=== PATIENT | male | born 1935 | race Caucasian/White ===

== ENCOUNTER 2017-06-22 20:01 | Inpatient (IN) | payer OTHER ==
[~2017-06-22] VITALS: Ht 167.6 cm; Wt 97.4 kg
[~2017-06-22 20:01] MED LIST: ALLO100T30 PO; ALPR0.25 PO; ASPI-496 PO; CARV3.1212 PO; CHOL10003 PO; CITA20TA5 PO; CLOP75TA PO; CYAN1TAB29 PO; FENO145T13 PO; FENO145T32 PO; FENO160T PO; FERR325T18 PO; FURO-93 PO; FURO20TA3 PO; GEMF600T3 PO; HYDR-3245 PO; HYDR-3307 PO; IPRA3AMP INH; LEVO500T47 PO; LOSA100T6 PO; LOSA25TA2 PO; LOSA50TA6 PO; METF850T2 PO; METO-93 PO; METO25TA35 PO/NG; OXYC-302 PO; POTA10TA11 PO; POTA10TA5 PO; SIMV20TA PO; SIMV20TA3 PO; TAMS0.4C2 PO; TICA90TA PO; TRIA15CR2 TP
[2017-06-22] MEDS ORDERED: SODIUM CHLORIDE FLUSH 10ML SYR IVF ONE (20:30)
[2017-06-22 20:37] LABS: HEMATOCRIT 38.3 % (39.2-51.8); WHITE BLOOD COUNT 5.2 x10^3/uL (3.4-10)
[2017-06-22 20:38] LABS: DIFF TOTAL CELLS COUNTED 100 CELL DIFF
[2017-06-22 20:43] LABS: BLOOD UREA NITROGEN 12 mg/dL (7-18)
[2017-06-22 20:48] LABS: ASPARTATE AMINO TRANSFERASE 26 U/L (15-37); IS PT STATUS REG ER OR PRE ER? YES
[2017-06-22 20:57] LABS: VERIFY COUNTS? YES
[2017-06-22] MEDS ORDERED: FUROSEMIDE 20 MG/2 ML IV ONE (21:00)
[2017-06-22] MEDS ORDERED: FUROSEMIDE 20 MG/2 ML ONE (21:37)
[2017-06-22] MEDS ORDERED: morphine SULFATE 10 MG/ML, 1ML IVPush PRN (22:00)
[2017-06-22] MEDS ORDERED: ONDANSETRON 2MG/ML, 2ML IVPush PRN (22:00)
[2017-06-22] MEDS ORDERED: POLYETHYLENE GLYCOL 17 GM PACKET PO PRN (22:00)
[2017-06-22] MEDS ORDERED: BISACODYL 10 MG SUPP PR PRN (22:00)
[2017-06-22] MEDS: SODIUM CHLORIDE FLUSH 10ML SYR IVF SCH (22:00)
[2017-06-22] MEDS ORDERED: ACETAMINOPHEN 325 MG TABLET PO PRN (22:00)
[2017-06-22] MEDS ORDERED: HYDROcodone/APAP 10/325 MG TABLET PO PRN (22:00)
[2017-06-22] MEDS ORDERED: NITROGLYCERIN 0.4 MG BOTTLE (25 TABS) SL PRN (22:00)
[2017-06-22] MEDS ORDERED: HEPARIN 5,000 UNITS/ML, 1ML ONE (22:49)
[2017-06-22] MEDS ORDERED: TAMSULOSIN 0.4 MG CAP.ER.24H ONE (22:49)
[2017-06-22] MEDS: TAMSULOSIN 0.4 MG CAP.ER.24H PO SCH (22:55)
[2017-06-22] MEDS: HEPARIN 5,000 UNITS/ML, 1ML SQ SCH (22:56)
[2017-06-23] VITALS: BP 136/88
[2017-06-23] MEDS: metFORMIN 850 MG TABLET PO SCH ×2 (01:50→09:29)
[2017-06-23] MEDS: SIMVASTATIN 20 MG TABLET PO SCH ×2 (01:50→22:51)
[2017-06-23] MEDS: ALLOPURINOL 100 MG TABLET PO SCH ×3 (01:51→22:51)
[2017-06-23] MEDS: FERROUS SULFATE 325 MG TABLET PO SCH ×3 (01:51→18:18)
[2017-06-23 02:32] LABS: BLOOD UREA NITROGEN 11 mg/dL (7-18)
[2017-06-23 02:35] LABS: ASPARTATE AMINO TRANSFERASE 15 U/L (15-37)
[2017-06-23 02:37] LABS: HEMATOCRIT 37.8 % (39.2-51.8); HEMOGLOBIN 12.8 g/dL (13.7-18.0); WHITE BLOOD COUNT 5.2 x10^3/uL (3.4-10)
[2017-06-23 02:45] LABS: IS PT STATUS REG ER OR PRE ER? NO
[2017-06-23 03:26] LABS: DIFF TOTAL CELLS COUNTED 100 CELL DIFF
[2017-06-23 03:27] LABS: VERIFY COUNTS? YES
[2017-06-23 03:28] LABS: ANISOCYTOSIS 1+
[2017-06-23 03:29] LABS: LARGE PLATELETS 1+
[2017-06-23] MEDS: CARVEDILOL 3.125 MG TABLET PO SCH ×2 (06:06→18:18)
[2017-06-23] MEDS: HEPARIN 5,000 UNITS/ML, 1ML SQ SCH ×3 (06:06→22:52)
[2017-06-23] MEDS ORDERED: FUROSEMIDE 20 MG/2 ML IV SCH (07:30)
[2017-06-23 08:29] LABS: IS PT STATUS REG ER OR PRE ER? NO
[2017-06-23] MEDS ORDERED: POTASSIUM CHLORIDE 10 MEQ TABLET.ER PO SCH (09:00)
[2017-06-23] MEDS: SODIUM CHLORIDE FLUSH 10ML SYR IVF SCH ×2 (09:00→22:51)
[2017-06-23 09:14] VITALS: BP 111/68
[2017-06-23] MEDS: ASPIRIN 81 MG TABLET EC PO SCH (09:28)
[2017-06-23] MEDS: FENOFIBRATE 145 MG TABLET PO SCH (09:28)
[2017-06-23] MEDS: CITALOPRAM 20 MG TABLET PO SCH (09:28)
[2017-06-23] MEDS: CLOPIDOGREL 75 MG TABLET PO SCH (09:29)
[2017-06-23] MEDS: LOSARTAN 25MG TABLET PO SCH (09:29)
[2017-06-23] MEDS: SENNA/DOCUSATE TABLET PO SCH (09:29)
[2017-06-23 16:00] VITALS: BP 124/74
[2017-06-23 19:13] VITALS: BP 130/67
[2017-06-23] MEDS: INSULIN ASPART 100 UNITS/ML, PEN SQ-INSULIN SCH (21:00)
[2017-06-23] MEDS: TAMSULOSIN 0.4 MG CAP.ER.24H PO SCH (22:52)
[2017-06-24 01:10] VITALS: BP 122/72
[2017-06-24 05:50] LABS: HEMATOCRIT 38.9 % (39.2-51.8); WHITE BLOOD COUNT 4.6 x10^3/uL (3.4-10)
[2017-06-24 06:17] LABS: DIFF TOTAL CELLS COUNTED 100 CELL DIFF
[2017-06-24 06:21] LABS: ANISOCYTOSIS 1+; LARGE PLATELETS 1+; VERIFY COUNTS? YES
[2017-06-24 06:41] LABS: ASPARTATE AMINO TRANSFERASE 11 U/L (15-37); BLOOD UREA NITROGEN 16 mg/dL (7-18)
[2017-06-24] MEDS: HEPARIN 5,000 UNITS/ML, 1ML SQ SCH (06:48)
[2017-06-24] MEDS: CARVEDILOL 3.125 MG TABLET PO SCH (06:48)
[2017-06-24] MEDS: INSULIN ASPART 100 UNITS/ML, PEN SQ-INSULIN SCH ×2 (07:00→11:00)
[2017-06-24 07:08] VITALS: BP 117/71
[2017-06-24] MEDS: CITALOPRAM 20 MG TABLET PO SCH (08:04)
[2017-06-24] MEDS: SENNA/DOCUSATE TABLET PO SCH (08:04)
[2017-06-24] MEDS: CLOPIDOGREL 75 MG TABLET PO SCH (08:04)
[2017-06-24] MEDS: FENOFIBRATE 145 MG TABLET PO SCH (08:04)
[2017-06-24] MEDS: LOSARTAN 25MG TABLET PO SCH (08:04)
[2017-06-24] MEDS: ASPIRIN 81 MG TABLET EC PO SCH (08:04)
[2017-06-24] MEDS: FERROUS SULFATE 325 MG TABLET PO SCH (08:04)
[2017-06-24] MEDS: ALLOPURINOL 100 MG TABLET PO SCH (08:04)
[2017-06-24] MEDS: SODIUM CHLORIDE FLUSH 10ML SYR IVF SCH (08:05)
[2017-06-24] MEDS ORDERED: FUROSEMIDE 20 MG/2 ML IV SCH (09:00)
== END 2017-06-24 11:25 | disposition home or self-care (01) | DRG 292 ==
LOC: ED 20:40 → EDIP 21:41 → 5SO 23:12 → DCLOUNGE 06-24 11:09
PROVIDERS: ADMIT Hospitalist; ATTEND Hospitalist
DX: I11.0 Hypertensive heart disease with heart failure (principal); J90 Pleural effusion, not elsewhere classified; E87.2 Acidosis; E87.1 Hypo-osmolality and hyponatremia; D64.9 Anemia, unspecified; E11.9 Type 2 diabetes mellitus without complications; I50.32 Chronic diastolic (congestive) heart failure; R07.2 Precordial pain; I25.10 Atherosclerotic heart disease of native coronary artery without angina pectoris; I48.91 Unspecified atrial fibrillation; I73.9 Peripheral vascular disease, unspecified; R07.89 Other chest pain; M10.9 Gout, unspecified; N40.0 Benign prostatic hyperplasia without lower urinary tract symptoms; Z85.46 Personal history of malignant neoplasm of prostate; Z86.73 Personal history of transient ischemic attack (TIA), and cerebral infarction without residual deficits; I25.2 Old myocardial infarction; Z87.891 Personal history of nicotine dependence; Z92.3 Personal history of irradiation; Z95.1 Presence of aortocoronary bypass graft; Z95.5 Presence of coronary angioplasty implant and graft
CPT/HCPCS: 36415; 71010; 80053; 82962; 83036; 83605; 83735; 84484; 85025; 93005; 96374; J1644; J1815; J1940

== ENCOUNTER 2017-11-13 02:00 | Inpatient (IN) | payer OTHER ==
[~2017-11-13] VITALS: Ht 177.8 cm; Wt 84.7 kg
[~2017-11-13 02:00] MED LIST changes: +ALPR0.254 PO; +ATOR-2 PO; +DOCU-131 PO; +ISOS30TA8 PO; +NITR12SP2 SL; +POLY17PO5 PO; +triamcinolone 0.1% TP
[2017-11-13] MEDS ORDERED: SODIUM CHLORIDE 0.9% 1,000 ML IV ONE (02:14)
[2017-11-13] MEDS ORDERED: SODIUM CHLORIDE FLUSH 10ML SYR IVF ONE (02:30)
[2017-11-13 02:35] LABS: BASOPHILS # (AUTO) 0.02 x10^3/uL (0-0.1); BASOPHILS % (AUTO) 0 % (0-1); EOSINOPHILS # (AUTO) 0.07 x10^3/uL (0-0.4); EOSINOPHILS % (AUTO) 1 % (1-7); LYMPHOCYTES # (AUTO) 1.25 x10^3/uL (1-3.4); LYMPHOCYTES % (AUTO) 18 % (22-44); MD NO; MEAN CORPUSCULAR HEMOGLOBIN 26.5 pg (27.5-34.5); MEAN CORPUSCULAR HGB CONC 33.1 g/dL (33.2-36.2); MEAN CORPUSCULAR VOLUME 80.2 fL (81-97); MEAN PLATELET VOLUME 9.3 fL (7.4-10.4); MONOCYTES # (AUTO) 1.11 x10^3/uL (0.2-0.8); MONOCYTES % (AUTO) 16 % (2-9); NEUTROPHILS # (AUTO) 4.63 x10^3/uL (1.8-6.8); NEUTROPHILS % (AUTO) 65 % (42-75); PLATELET COUNT 212 x10^3/uL (130-400); RED BLOOD COUNT 4.62 x10^6/uL (4.38-5.82); RED CELL DISTRIBUTION WIDTH 15.4 % (9.4-14.8)
[2017-11-13 02:44] LABS: INTERNATIONAL NORMALIZED RATIO 1.17 (0.93-1.1); PROTHROMBIN TIME 12.1 Seconds (9.6-11.5)
[2017-11-13 02:47] LABS: ALBUMIN 3.4 g/dL (3.4-5.0); ANION GAP 13 mmol/L (5-15); CALCIUM 8.8 mg/dL (8.5-10.1); CHLORIDE 107 mmol/L (98-107)
[2017-11-13 02:52] LABS: ALANINE AMINOTRANSFERASE 11 U/L (12-78); ALKALINE PHOSPHATASE 66 U/L (45-117); BILIRUBIN,TOTAL 0.4 mg/dL (0.2-1.0); CREATININE 1.11 mg/dL (0.7-1.3); TOTAL PROTEIN 7.3 g/dL (6.4-8.2); TROPONIN I < 0.015 ng/mL (0.000-0.045)
[2017-11-13] MEDS ORDERED: FUROSEMIDE 20 MG/2 ML IV ONE (04:30)
[2017-11-13] MEDS ORDERED: ALBUTEROL/IPRATROPIUM 2.5MG/0.5MG, 3 ML NEB SCH (04:30)
[2017-11-13] MEDS ORDERED: NITROGLYCERIN 0.4 MG/SPRAY SL PRN (04:30)
[2017-11-13] MEDS ORDERED: ACETAMINOPHEN 325 MG TABLET PO PRN (05:00)
[2017-11-13] MEDS ORDERED: POLYETHYLENE GLYCOL 17 GM PACKET PO PRN (05:00)
[2017-11-13] MEDS ORDERED: ENALAPRILAT 1.25 MG/ML, 2ML IVPush PRN (05:00)
[2017-11-13] MEDS ORDERED: DOCUSATE 100 MG CAPSULE PO PRN (05:00)
[2017-11-13] MEDS ORDERED: OXYcodone IR 5MG TABLET PO PRN (05:00)
[2017-11-13] MEDS ORDERED: hydrALAzine 20 MG/ML, 1ML IVPush PRN (05:00)
[2017-11-13] MEDS ORDERED: morphine SULFATE 10 MG/ML, 1ML IVPush PRN (05:00)
[2017-11-13] MEDS ORDERED: ONDANSETRON 2MG/ML, 2ML IVPush PRN (05:00)
[2017-11-13] MEDS ORDERED: BISACODYL 10 MG SUPP PR PRN (05:00)
[2017-11-13 05:01] LABS: HEMOGLOBIN A1C 6.9 % (4.2-6.3)
[2017-11-13 05:04] LABS: FREE T4 (FREE THYROXINE) 1.08 ng/dL (0.76-1.46); THYROID STIMULATING HORMONE 1.89 mIU/L (0.358-3.740)
[2017-11-13] MEDS: CARVEDILOL 3.125 MG TABLET PO SCH ×2 (06:00→17:53)
[2017-11-13] MEDS ORDERED: FUROSEMIDE 40 MG/4 ML ONE (06:12)
[2017-11-13] MEDS ORDERED: HEPARIN 5,000 UNITS/ML, 1ML ONE (06:12)
[2017-11-13] MEDS: HEPARIN 5,000 UNITS/ML, 1ML SQ SCH ×2 (06:20→15:59)
[2017-11-13 06:53] VITALS: BP 107/80
[2017-11-13] MEDS ORDERED: metFORMIN 850 MG TABLET PO SCH (08:00)
[2017-11-13] MEDS: INSULIN LISPRO 100 UNITS/ML, PEN SQ-INSULIN SCH ×4 (08:00→21:00)
[2017-11-13 08:17] LABS: TROPONIN I < 0.015 ng/mL (0.000-0.045)
[2017-11-13 08:24] VITALS: BP 103/71
[2017-11-13] MEDS ORDERED: ISOSORBIDE MONONITRATE ER 30 MG TABLET PO SCH (09:00)
[2017-11-13] MEDS: ALBUTEROL/IPRATROPIUM 2.5MG/0.5MG, 3 ML NPPB SCH ×3 (09:00→19:25)
[2017-11-13] MEDS ORDERED: FUROSEMIDE 20 MG TABLET PO SCH (09:00)
[2017-11-13] MEDS ORDERED: CITALOPRAM 20 MG TABLET ONE (09:47)
[2017-11-13] MEDS ORDERED: DOCUSATE 100 MG CAPSULE ONE (09:47)
[2017-11-13] MEDS ORDERED: FUROSEMIDE 20 MG/2 ML ONE (09:47)
[2017-11-13] MEDS ORDERED: ASPIRIN 81 MG TABLET EC ONE (09:47)
[2017-11-13] MEDS ORDERED: CLOPIDOGREL 75 MG TABLET ONE (09:47)
[2017-11-13] MEDS ORDERED: POTASSIUM CHLORIDE 20 MEQ TAB.ER.PRT ONE (09:48)
[2017-11-13] MEDS: DOCUSATE 100 MG CAPSULE PO SCH ×2 (10:06→21:30)
[2017-11-13] MEDS: ASPIRIN 81 MG TABLET EC PO SCH (10:06)
[2017-11-13] MEDS: CLOPIDOGREL 75 MG TABLET PO SCH (10:06)
[2017-11-13] MEDS: CITALOPRAM 20 MG TABLET PO SCH (10:06)
[2017-11-13] MEDS: POTASSIUM CHLORIDE 10 MEQ TABLET.ER PO SCH (10:09)
[2017-11-13] MEDS: FUROSEMIDE 20 MG/2 ML IV SCH (10:11)
[2017-11-13] MEDS ORDERED: ALBUTEROL/IPRATROPIUM 2.5MG/0.5MG, 3 ML ONE (10:24)
[2017-11-13 11:55] VITALS: BP 153/82
[2017-11-13] MEDS: ALLOPURINOL 100 MG TABLET PO SCH ×2 (11:57→21:29)
[2017-11-13] MEDS: FENOFIBRATE 145 MG TABLET PO SCH (11:57)
[2017-11-13] MEDS: LOSARTAN 25MG TABLET PO SCH (11:58)
[2017-11-13] MEDS: FERROUS SULFATE 325 MG TABLET PO SCH ×2 (11:58→17:53)
[2017-11-13] MEDS: POLYETHYLENE GLYCOL 17 GM PACKET PO SCH (12:07)
[2017-11-13 14:04] LABS: TROPONIN I < 0.015 ng/mL (0.000-0.045)
[2017-11-13 14:11] VITALS: BP 130/71
[2017-11-13 15:09] LABS: MICROSCOPIC NOT IND
[2017-11-13 15:22] LABS: CULTURE INDICATED? NO
[2017-11-13] MEDS ORDERED: ERGOCALCIFEROL 50,000 UNIT CAPSULE PO SCH (16:30)
[2017-11-13 18:37] VITALS: BP 133/72
[2017-11-13] MEDS ORDERED: ATORVASTATIN 80 MG TABLET PO SCH (21:00)
[2017-11-13] MEDS ORDERED: TAMSULOSIN 0.4 MG CAP.ER.24H PO SCH (21:00)
[2017-11-14] MEDS: HEPARIN 5,000 UNITS/ML, 1ML SQ SCH ×2 (00:53→08:47)
[2017-11-14 01:55] VITALS: BP 125/76
[2017-11-14 05:13] LABS: BASOPHILS # (AUTO) 0.02 x10^3/uL (0-0.1); BASOPHILS % (AUTO) 0 % (0-1); EOSINOPHILS # (AUTO) 0.04 x10^3/uL (0-0.4); EOSINOPHILS % (AUTO) 1 % (1-7); LYMPHOCYTES # (AUTO) 1.34 x10^3/uL (1-3.4); LYMPHOCYTES % (AUTO) 29 % (22-44); MD NO; MEAN CORPUSCULAR HEMOGLOBIN 26.8 pg (27.5-34.5); MEAN CORPUSCULAR VOLUME 81.2 fL (81-97); MEAN PLATELET VOLUME 9.6 fL (7.4-10.4); MONOCYTES # (AUTO) 0.91 x10^3/uL (0.2-0.8); MONOCYTES % (AUTO) 20 % (2-9); NEUTROPHILS # (AUTO) 2.25 x10^3/uL (1.8-6.8); NEUTROPHILS % (AUTO) 49 % (42-75); PLATELET COUNT 207 x10^3/uL (130-400); RED BLOOD COUNT 4.43 x10^6/uL (4.38-5.82); RED CELL DISTRIBUTION WIDTH 15.2 % (9.4-14.8)
[2017-11-14 05:14] LABS: ALBUMIN 3.2 g/dL (3.4-5.0); ANION GAP 9 mmol/L (5-15); CALCIUM 9.1 mg/dL (8.5-10.1); CHLORIDE 102 mmol/L (98-107); CHOLESTEROL, TOTAL 143 mg/dL (140-239)
[2017-11-14 05:17] LABS: ALANINE AMINOTRANSFERASE 11 U/L (12-78); ALKALINE PHOSPHATASE 62 U/L (45-117); BILIRUBIN,TOTAL 0.6 mg/dL (0.2-1.0); CHOL/HDL RATIO 7.5; CREATININE 1.07 mg/dL (0.7-1.3); HDL CHOL % 13 % (26-37); HDL CHOLESTEROL (DIRECT) 19 mg/dL (40-60); LDL CHOLESTEROL,CALCULATED 64 mg/dL (54-169); LDL/HDL RATIO 3.4 (0.5-3.0); TOTAL PROTEIN 7.2 g/dL (6.4-8.2); TRIGLYCERIDES 299 mg/dL (50-200); VLDL CHOLESTEROL 60 mg/dL (0-25)
[2017-11-14 06:23] VITALS: BP 130/75
[2017-11-14] MEDS: CARVEDILOL 3.125 MG TABLET PO SCH (06:27)
[2017-11-14] MEDS: INSULIN LISPRO 100 UNITS/ML, PEN SQ-INSULIN SCH ×2 (07:00→11:00)
[2017-11-14] MEDS: FENOFIBRATE 145 MG TABLET PO SCH (08:48)
[2017-11-14] MEDS: CLOPIDOGREL 75 MG TABLET PO SCH (08:48)
[2017-11-14] MEDS: FUROSEMIDE 20 MG/2 ML IV SCH (08:48)
[2017-11-14] MEDS: ALLOPURINOL 100 MG TABLET PO SCH (08:49)
[2017-11-14] MEDS: ASPIRIN 81 MG TABLET EC PO SCH (08:49)
[2017-11-14] MEDS: FERROUS SULFATE 325 MG TABLET PO SCH (08:49)
[2017-11-14] MEDS: LOSARTAN 25MG TABLET PO SCH (08:49)
[2017-11-14] MEDS: DOCUSATE 100 MG CAPSULE PO SCH (08:50)
[2017-11-14] MEDS: POTASSIUM CHLORIDE 10 MEQ TABLET.ER PO SCH (08:50)
[2017-11-14] MEDS: CITALOPRAM 20 MG TABLET PO SCH (08:50)
[2017-11-14] MEDS ORDERED: ISOSORBIDE MONONITRATE ER 30 MG TABLET PO SCH (09:00)
[2017-11-14] MEDS ORDERED: CYANOCOBALOMIN 100MCG TABLET PO SCH (09:00)
[2017-11-14] MEDS: POLYETHYLENE GLYCOL 17 GM PACKET PO SCH (09:07)
[2017-11-14] MEDS: ALBUTEROL/IPRATROPIUM 2.5MG/0.5MG, 3 ML NPPB SCH (09:30)
[2017-11-14] MEDS ORDERED: ERGO500017 PO (11:10)
[2017-11-14] MEDS ORDERED: ISOS30TA8 PO (11:10)
[2017-11-14] MEDS ORDERED: CYAN100T PO (11:10)
== END 2017-11-14 12:40 | disposition home or self-care (01) | DRG 189 ==
LOC: ED 03:31 → EDIP 03:59 → 4WST 06:36 → EDIP 06:36 → 5SO 11:40 → DCLOUNGE 11-14 12:28
PROVIDERS: ADMIT Internal Medicine; ATTEND Internal Medicine
DX: J96.01 Acute respiratory failure with hypoxia (principal); E11.51 Type 2 diabetes mellitus with diabetic peripheral angiopathy without gangrene; I48.91 Unspecified atrial fibrillation; I50.32 Chronic diastolic (congestive) heart failure; I11.0 Hypertensive heart disease with heart failure; Z95.1 Presence of aortocoronary bypass graft; I25.10 Atherosclerotic heart disease of native coronary artery without angina pectoris; E78.5 Hyperlipidemia, unspecified; E55.9 Vitamin D deficiency, unspecified; J44.9 Chronic obstructive pulmonary disease, unspecified; Z79.02 Long term (current) use of antithrombotics/antiplatelets; I25.2 Old myocardial infarction; Z79.82 Long term (current) use of aspirin; Z79.84 Long term (current) use of oral hypoglycemic drugs; Z79.899 Other long term (current) drug therapy; Z85.46 Personal history of malignant neoplasm of prostate; Z86.73 Personal history of transient ischemic attack (TIA), and cerebral infarction without residual deficits; Z95.5 Presence of coronary angioplasty implant and graft; Z92.3 Personal history of irradiation; Z87.891 Personal history of nicotine dependence; Z87.01 Personal history of pneumonia (recurrent); M10.9 Gout, unspecified
CPT/HCPCS: 36415; 71045; 80053; 80061; 81003; 82306; 82607; 82728; 82962; 83036; 83540; 83550; 83690; 83735; 83880; 84439; 84443; 84466; 84484; 85025; 85610; 85730; 93005; 94640; 96374; J1644; J7620; J1815; J1940; J7030

== ENCOUNTER 2018-02-21 08:00 | Inpatient (IN) | payer OTHER ==
[~2018-02-21] VITALS: Ht 167.6 cm; Wt 88.1 kg
[~2018-02-21 08:00] MED LIST changes: +AMLO5TAB2 PO; +AMOX1TAB64 PO; +ASPI-650 PO; +CARV6.2512 PO; +CEFD300C37 PO; -CITA20TA5 PO; +CITA20TA6 PO; +CYAN100T PO; +DOXY100T PO; +ERGO500017 PO; -FENO145T13 PO; +FENO145T30 PO
[2018-02-21 08:29] LABS: INTERNATIONAL NORMALIZED RATIO 1.27 (0.93-1.1)
[2018-02-21] MEDS ORDERED: SODIUM CHLORIDE FLUSH 10ML SYR IVF ONE (08:30)
[2018-02-21] MEDS ORDERED: ONDANSETRON ODT 4 MG PO ONE (08:30)
[2018-02-21 08:34] LABS: ALBUMIN 3.4 g/dL (3.4-5.0); ANION GAP 12 mmol/L (5-15); CALCIUM 9.2 mg/dL (8.5-10.1); CHLORIDE 102 mmol/L (98-107); CREATININE 1.02 mg/dL (0.7-1.3)
[2018-02-21 08:38] LABS: TROPONIN I 0.019 ng/mL (0.000-0.045)
[2018-02-21] MEDS ORDERED: ONDANSETRON ODT 4 MG ONE (08:59)
[2018-02-21] MEDS ORDERED: NITROGLYCERIN/D5W PMX 250 ML IV PRN (09:00)
[2018-02-21] MEDS ORDERED: MORPHINE SULFATE 4 MG/ML, 1ML ONE ×2 (09:00→09:12)
[2018-02-21] MEDS: MORPHINE SULFATE 4 MG/ML, 1ML IVPush PRN ×2 (09:02→09:17)
[2018-02-21] MEDS ORDERED: HEPARIN 25,000 UNITS/500ML PMX 500 ML ONE (09:07)
[2018-02-21] MEDS ORDERED: HEPARIN 5,000 UNITS/ML, 1ML ONE ×2 (09:10→18:29)
[2018-02-21] MEDS: HEPARIN 25,000 UNITS/500ML PMX 500 ML IV PRN (09:20)
[2018-02-21] MEDS ORDERED: HEPARIN 5,000 UNITS/ML, 1ML IV ONE (09:30)
[2018-02-21] MEDS ORDERED: NITROGLYCERIN/D5W PMX 250 ML ONE (09:35)
[2018-02-21 09:38] LABS: MEAN CORPUSCULAR HEMOGLOBIN 28.1 pg (27.5-34.5); MEAN CORPUSCULAR HGB CONC 33.8 g/dL (33.2-36.2); MEAN CORPUSCULAR VOLUME 83.1 fL (81-97); MEAN PLATELET VOLUME 10.9 fL (7.4-10.4); PLATELET COUNT 166 x10^3/uL (130-400); RED CELL DISTRIBUTION WIDTH 16.3 % (9.4-14.8)
[2018-02-21 09:39] LABS: MD YES
[2018-02-21 09:57] LABS: <PLATELET ESTIMATE> ADEQUATE; <PLT MORPHOLOGY> NORMAL PLT MORPH; ANISOCYTOSIS 1+; LYMPH#(MANUAL) 1.77 x10^3/uL (1-3.4); LYMPHS% (MANUAL) 30 % (22-44); MONOS#(MANUAL) 0.59 x10^3/uL (0.3-2.7); MONOS% (MANUAL) 10 % (2-9); SEG#(MANUAL) 3.54 x10^3/uL (1.8-6.8); SEGS% (MANUAL) 60 % (42-75)
[2018-02-21] MEDS ORDERED: FILTER 0.22 MICRON FOR AMIODARONE IV PRN (10:00)
[2018-02-21] MEDS ORDERED: AMIODARONE 150 MG in DEXTROSE 5% 100 ML IV ONE (10:00)
[2018-02-21] MEDS ORDERED: DEXTROSE 5% IV PRN (10:15)
[2018-02-21] MEDS ORDERED: AMIODARONE IV PRN (10:15)
[2018-02-21] MEDS ORDERED: POLYETHYLENE GLYCOL 17 GM PACKET PO PRN (11:00)
[2018-02-21] MEDS ORDERED: BISACODYL 10 MG SUPP PR PRN (11:00)
[2018-02-21] MEDS ORDERED: ERGOCALCIFEROL 50,000 UNIT CAPSULE PO SCH (11:00)
[2018-02-21] MEDS ORDERED: ACETAMINOPHEN 325 MG TABLET PO PRN (11:00)
[2018-02-21] MEDS ORDERED: DOCUSATE 100 MG CAPSULE PO PRN (11:00)
[2018-02-21 13:15] LABS: TROPONIN I 0.263 ng/mL (0.000-0.045)
[2018-02-21] MEDS ORDERED: ALBUTEROL/IPRATROPIUM 2.5MG/0.5MG, 3 ML NPPB PRN ×2 (14:00→16:30)
[2018-02-21] MEDS ORDERED: CLOPIDOGREL 75 MG TABLET ONE (15:07)
[2018-02-21] MEDS: CLOPIDOGREL 75 MG TABLET PO SCH (15:09)
[2018-02-21] MEDS: ISOSORBIDE MONONITRATE ER 30 MG TABLET PO SCH (15:59)
[2018-02-21] MEDS ORDERED: ALBUTEROL/IPRATROPIUM 2.5MG/0.5MG, 3 ML NEB SCH (16:00)
[2018-02-21] MEDS ORDERED: ALBUTEROL/IPRATROPIUM 2.5MG/0.5MG, 3 ML ONE (16:00)
[2018-02-21] MEDS: CARVEDILOL 12.5 MG TABLET PO SCH (17:48)
[2018-02-21 18:31] LABS: TROPONIN I 0.583 ng/mL (0.000-0.045)
[2018-02-21] MEDS: HEPARIN 5,000 UNITS/ML, 1ML IV PRN (18:34)
[2018-02-21] MEDS ORDERED: FAMOTIDINE 20 MG/2 ML ONE (20:54)
[2018-02-21] MEDS ORDERED: TAMSULOSIN 0.4 MG CAP.ER.24H ONE (20:54)
[2018-02-21] MEDS: ALLOPURINOL 100 MG TABLET PO SCH (20:56)
[2018-02-21] MEDS: TAMSULOSIN 0.4 MG CAP.ER.24H PO SCH (20:56)
[2018-02-21] MEDS: ATORVASTATIN 80 MG TABLET PO SCH (20:56)
[2018-02-21] MEDS: FAMOTIDINE 20 MG/2 ML IVPush SCH (20:56)
[2018-02-21 22:49] VITALS: BP 122/63
[2018-02-21 23:23] LABS: TROPONIN I 0.619 ng/mL (0.000-0.045)
[2018-02-22 01:21] VITALS: BP 116/70
[2018-02-22] MEDS: HEPARIN 5,000 UNITS/ML, 1ML IV PRN ×3 (01:37→21:22)
[2018-02-22 05:15] LABS: MEAN CORPUSCULAR HEMOGLOBIN 27.8 pg (27.5-34.5); MEAN CORPUSCULAR HGB CONC 33.2 g/dL (33.2-36.2); MEAN CORPUSCULAR VOLUME 83.7 fL (81-97); MEAN PLATELET VOLUME 10.7 fL (7.4-10.4); PLATELET COUNT 141 x10^3/uL (130-400); RED BLOOD COUNT 3.87 x10^6/uL (4.38-5.82)
[2018-02-22 05:25] LABS: ALBUMIN 3.1 g/dL (3.4-5.0); ANION GAP 8 mmol/L (5-15); CALCIUM 8.1 mg/dL (8.5-10.1); CHLORIDE 103 mmol/L (98-107)
[2018-02-22 05:30] LABS: ALANINE AMINOTRANSFERASE 16 U/L (12-78); ALKALINE PHOSPHATASE 58 U/L (45-117); BILIRUBIN,TOTAL 0.6 mg/dL (0.2-1.0); CREATININE 0.79 mg/dL (0.7-1.3); TOTAL PROTEIN 6.6 g/dL (6.4-8.2); TROPONIN I 0.468 ng/mL (0.000-0.045)
[2018-02-22 05:45] VITALS: BP 125/68
[2018-02-22] MEDS: CARVEDILOL 12.5 MG TABLET PO SCH ×2 (05:46→17:30)
[2018-02-22] MEDS: ASPIRIN 325 MG TABLET EC PO SCH (05:46)
[2018-02-22 05:48] LABS: MD YES
[2018-02-22 05:50] LABS: BASOS#(MANUAL) 0.05 x10^3/uL (0-0.1); BASOS% (MANUAL) 1 % (0-1); EOS#(MANUAL) 0.05 x10^3/uL (0.0-0.4); EOS% (MANUAL) 1 % (1-7); LYMPH#(MANUAL) 1.04 x10^3/uL (1-3.4); LYMPHS% (MANUAL) 23 % (22-44); MONOS#(MANUAL) 0.63 x10^3/uL (0.3-2.7); MONOS% (MANUAL) 14 % (2-9); SEG#(MANUAL) 2.75 x10^3/uL (1.8-6.8); SEGS% (MANUAL) 61 % (42-75)
[2018-02-22 05:51] LABS: ANISOCYTOSIS 1+
[2018-02-22 05:52] LABS: <PLATELET ESTIMATE> ADEQUATE; LARGE PLATELETS 1+
[2018-02-22] MEDS ORDERED: ASPIRIN 325 MG TABLET EC PO SCH (06:00)
[2018-02-22] MEDS ORDERED: ISOSORBIDE MONONITRATE ER 30 MG TABLET PO SCH (09:00)
[2018-02-22] MEDS ORDERED: CLOPIDOGREL 75 MG TABLET PO SCH (09:00)
[2018-02-22 09:11] VITALS: BP 97/60
[2018-02-22] MEDS: CYANOCOBALOMIN 100MCG TABLET PO SCH (09:15)
[2018-02-22] MEDS: ALLOPURINOL 100 MG TABLET PO SCH ×2 (09:15→20:41)
[2018-02-22] MEDS: CLOPIDOGREL 75 MG TABLET PO SCH (09:15)
[2018-02-22] MEDS: CITALOPRAM 20 MG TABLET PO SCH (09:15)
[2018-02-22] MEDS: FENOFIBRATE 145 MG TABLET PO SCH (09:15)
[2018-02-22] MEDS: POLYETHYLENE GLYCOL 17 GM PACKET PO SCH (09:16)
[2018-02-22] MEDS: FAMOTIDINE 20 MG/2 ML IVPush SCH ×2 (09:16→20:40)
[2018-02-22] MEDS: HEPARIN 25,000 UNITS/500ML PMX 500 ML IV PRN (09:18)
[2018-02-22] MEDS ORDERED: POTASSIUM CHLORIDE 20 MEQ TAB.ER.PRT PO ONE ×2 (10:30→15:00)
[2018-02-22] MEDS ORDERED: MAGNESIUM SULFATE PMX 2GM/50ML 50 ML IV ONE (10:30)
[2018-02-22] MEDS ORDERED: AMIODARONE 200 MG TABLET PO SCH (11:00)
[2018-02-22] MEDS: AMIODARONE 200 MG TABLET PO SCH ×2 (11:43→20:41)
[2018-02-22] MEDS: AMLODIPINE 5 MG TABLET PO SCH (11:49)
[2018-02-22 12:49] VITALS: BP 92/52
[2018-02-22] MEDS: ISOSORBIDE MONONITRATE ER 30 MG TABLET PO SCH (15:43)
[2018-02-22 17:29] VITALS: BP 120/71
[2018-02-22 19:07] VITALS: BP 96/54
[2018-02-22] MEDS ORDERED: FAMOTIDINE 20 MG TABLET ONE (20:35)
[2018-02-22] MEDS: TAMSULOSIN 0.4 MG CAP.ER.24H PO SCH (20:41)
[2018-02-22] MEDS: ATORVASTATIN 80 MG TABLET PO SCH (20:41)
[2018-02-23 02:00] VITALS: BP 93/56
[2018-02-23] MEDS: HEPARIN 25,000 UNITS/500ML PMX 500 ML IV PRN (02:22)
[2018-02-23 03:33] LABS: MEAN CORPUSCULAR HGB CONC 33.5 g/dL (33.2-36.2); MEAN CORPUSCULAR VOLUME 83.6 fL (81-97); MEAN PLATELET VOLUME 9.9 fL (7.4-10.4); PLATELET COUNT 141 x10^3/uL (130-400); RED BLOOD COUNT 3.71 x10^6/uL (4.38-5.82); RED CELL DISTRIBUTION WIDTH 15.6 % (9.4-14.8)
[2018-02-23 03:36] LABS: ALBUMIN 2.9 g/dL (3.4-5.0); ANION GAP 8 mmol/L (5-15); CALCIUM 8.7 mg/dL (8.5-10.1); CHLORIDE 105 mmol/L (98-107); CREATININE 1.19 mg/dL (0.7-1.3)
[2018-02-23] MEDS: HEPARIN 5,000 UNITS/ML, 1ML IV PRN (03:57)
[2018-02-23 04:36] LABS: MD YES
[2018-02-23 04:39] LABS: <PLATELET ESTIMATE> ADEQUATE; ANISOCYTOSIS 1+; LARGE PLATELETS 1+; LYMPH#(MANUAL) 1.43 x10^3/uL (1-3.4); LYMPHS% (MANUAL) 34 % (22-44); MONOS#(MANUAL) 0.29 x10^3/uL (0.3-2.7); MONOS% (MANUAL) 7 % (2-9); SEG#(MANUAL) 2.48 x10^3/uL (1.8-6.8); SEGS% (MANUAL) 59 % (42-75)
[2018-02-23 05:16] VITALS: BP 106/65
[2018-02-23] MEDS: ASPIRIN 325 MG TABLET EC PO SCH (05:16)
[2018-02-23 07:30] VITALS: BP 114/67
[2018-02-23] MEDS: ALLOPURINOL 100 MG TABLET PO SCH ×2 (07:54→20:17)
[2018-02-23] MEDS: CYANOCOBALOMIN 100MCG TABLET PO SCH (07:54)
[2018-02-23] MEDS: AMIODARONE 200 MG TABLET PO SCH ×2 (07:54→20:18)
[2018-02-23] MEDS: FENOFIBRATE 145 MG TABLET PO SCH (07:54)
[2018-02-23] MEDS: CLOPIDOGREL 75 MG TABLET PO SCH (07:54)
[2018-02-23] MEDS: AMLODIPINE 5 MG TABLET PO SCH (07:54)
[2018-02-23] MEDS: FAMOTIDINE 20 MG/2 ML IVPush SCH ×2 (07:54→20:17)
[2018-02-23] MEDS: POLYETHYLENE GLYCOL 17 GM PACKET PO SCH (07:55)
[2018-02-23] MEDS: CARVEDILOL 12.5 MG TABLET PO SCH ×2 (07:55→18:00)
[2018-02-23] MEDS: CITALOPRAM 20 MG TABLET PO SCH (07:58)
[2018-02-23] MEDS: APIXABAN 5 MG TABLET PO SCH ×2 (10:27→20:17)
[2018-02-23 12:50] VITALS: BP 129/81
[2018-02-23] MEDS: ISOSORBIDE MONONITRATE ER 30 MG TABLET PO SCH (15:38)
[2018-02-23] MEDS ORDERED: APIX5TAB PO (16:27)
[2018-02-23 20:01] VITALS: BP 110/60
[2018-02-23] MEDS: TAMSULOSIN 0.4 MG CAP.ER.24H PO SCH (20:17)
[2018-02-23] MEDS: ATORVASTATIN 80 MG TABLET PO SCH (20:18)
[2018-02-24 02:00] VITALS: BP 106/60
[2018-02-24 05:00] VITALS: BP 118/68
[2018-02-24] MEDS: ASPIRIN 325 MG TABLET EC PO SCH (05:04)
[2018-02-24] MEDS: CARVEDILOL 12.5 MG TABLET PO SCH (05:04)
[2018-02-24 08:10] LABS: ALBUMIN 3.2 g/dL (3.4-5.0); ANION GAP 7 mmol/L (5-15); CALCIUM 8.5 mg/dL (8.5-10.1); CHLORIDE 108 mmol/L (98-107)
[2018-02-24 08:14] LABS: ALANINE AMINOTRANSFERASE 15 U/L (12-78); ALKALINE PHOSPHATASE 60 U/L (45-117); BILIRUBIN,TOTAL 0.7 mg/dL (0.2-1.0); CREATININE 0.87 mg/dL (0.7-1.3)
[2018-02-24 08:38] LABS: MEAN CORPUSCULAR HEMOGLOBIN 27.6 pg (27.5-34.5); MEAN CORPUSCULAR HGB CONC 33.1 g/dL (33.2-36.2); MEAN CORPUSCULAR VOLUME 83.5 fL (81-97); MEAN PLATELET VOLUME 10.4 fL (7.4-10.4); PLATELET COUNT 152 x10^3/uL (130-400); RED BLOOD COUNT 3.85 x10^6/uL (4.38-5.82); RED CELL DISTRIBUTION WIDTH 15.9 % (9.4-14.8)
[2018-02-24 08:42] VITALS: BP 114/58
[2018-02-24] MEDS: CYANOCOBALOMIN 100MCG TABLET PO SCH (09:00)
[2018-02-24] MEDS ORDERED: FAMOTIDINE 20 MG TABLET PO SCH (09:00)
[2018-02-24] MEDS: ALLOPURINOL 100 MG TABLET PO SCH (09:00)
[2018-02-24] MEDS: CLOPIDOGREL 75 MG TABLET PO SCH (09:00)
[2018-02-24] MEDS: POLYETHYLENE GLYCOL 17 GM PACKET PO SCH (09:00)
[2018-02-24] MEDS: AMIODARONE 200 MG TABLET PO SCH (09:01)
[2018-02-24] MEDS: CITALOPRAM 20 MG TABLET PO SCH (09:01)
[2018-02-24] MEDS: AMLODIPINE 5 MG TABLET PO SCH (09:01)
[2018-02-24] MEDS: FENOFIBRATE 145 MG TABLET PO SCH (09:01)
[2018-02-24] MEDS: APIXABAN 5 MG TABLET PO SCH (09:01)
[2018-02-24 09:42] LABS: MD YES
[2018-02-24 09:45] LABS: <PLATELET ESTIMATE> ADEQUATE; <PLT MORPHOLOGY> NORMAL PLT MORPH; ANISOCYTOSIS 1+; EOS#(MANUAL) 0.09 x10^3/uL (0.0-0.4); EOS% (MANUAL) 2 % (1-7); LYMPH#(MANUAL) 1.14 x10^3/uL (1-3.4); LYMPHS% (MANUAL) 26 % (22-44); MONOS#(MANUAL) 0.18 x10^3/uL (0.3-2.7); MONOS% (MANUAL) 4 % (2-9); SEG#(MANUAL) 2.99 x10^3/uL (1.8-6.8); SEGS% (MANUAL) 68 % (42-75)
[2018-02-24] MEDS ORDERED: ISOS30TA8 PO (10:39)
[2018-02-24] MEDS ORDERED: AMIO200T42 PO (10:39)
[2018-02-24] MEDS ORDERED: ASPI-515 PO (10:41)
== END 2018-02-24 11:53 | disposition home or self-care (01) | DRG 280 ==
LOC: ED 08:38 → EDIP 09:23 → 5SO 22:31 → DCLOUNGE 02-24 11:39
PROVIDERS: ADMIT Hospitalist; ATTEND Hospitalist
DX: I21.9 Acute myocardial infarction, unspecified (principal); E43 Unspecified severe protein-calorie malnutrition; I50.32 Chronic diastolic (congestive) heart failure; J98.11 Atelectasis; I25.110 Atherosclerotic heart disease of native coronary artery with unstable angina pectoris; I48.91 Unspecified atrial fibrillation; N40.0 Benign prostatic hyperplasia without lower urinary tract symptoms; I11.0 Hypertensive heart disease with heart failure; J44.9 Chronic obstructive pulmonary disease, unspecified; I65.29 Occlusion and stenosis of unspecified carotid artery; D64.9 Anemia, unspecified; E11.51 Type 2 diabetes mellitus with diabetic peripheral angiopathy without gangrene; F03.90 Unspecified dementia, unspecified severity, without behavioral disturbance, psychotic disturbance, mood disturbance, and anxiety; E78.5 Hyperlipidemia, unspecified; I25.2 Old myocardial infarction; Z79.02 Long term (current) use of antithrombotics/antiplatelets; Z79.82 Long term (current) use of aspirin; Z85.46 Personal history of malignant neoplasm of prostate; Z86.73 Personal history of transient ischemic attack (TIA), and cerebral infarction without residual deficits; Z92.3 Personal history of irradiation; Z87.891 Personal history of nicotine dependence; Z95.1 Presence of aortocoronary bypass graft; Z95.5 Presence of coronary angioplasty implant and graft; Z68.31 Body mass index [BMI] 31.0-31.9, adult; E11.649 Type 2 diabetes mellitus with hypoglycemia without coma; Z79.4 Long term (current) use of insulin; Z79.01 Long term (current) use of anticoagulants
CPT/HCPCS: 36415; 71045; 80048; 80053; 82040; 82962; 83735; 83880; 84100; 84484; 85025; 85520; 85610; 93005; 94640; 96374; 96375; J1644; J7620; Q0162; J3475; S0028

== ENCOUNTER 2018-03-09 21:26 | Emergency (ER) | payer OTHER ==
[~2018-03-09] VITALS: Ht 167.6 cm; Wt 86.2 kg
[~2018-03-09 21:26] MED LIST changes: +AMIO200T42 PO; +APIX5TAB PO; +ASPI-515 PO
[2018-03-09] MEDS ORDERED: OXYMETAZOLINE NASAL SPRAY 0.05%, 15ML ONE (22:08)
[2018-03-09 22:44] LABS: MEAN CORPUSCULAR HEMOGLOBIN 28.2 pg (27.5-34.5); MEAN CORPUSCULAR HGB CONC 33.6 g/dL (33.2-36.2); MEAN CORPUSCULAR VOLUME 83.7 fL (81-97); MEAN PLATELET VOLUME 10.8 fL (7.4-10.4); PLATELET COUNT 237 x10^3/uL (130-400); RED BLOOD COUNT 4.06 x10^6/uL (4.38-5.82); RED CELL DISTRIBUTION WIDTH 16.2 % (9.4-14.8)
[2018-03-09 22:52] LABS: INTERNATIONAL NORMALIZED RATIO 1.22 (0.93-1.1); PROTHROMBIN TIME 12.5 Seconds (9.6-11.5)
[2018-03-09 23:00] LABS: MD YES
[2018-03-09] MEDS ORDERED: ONDANSETRON ODT 4 MG ONE (23:02)
[2018-03-09 23:05] LABS: <PLATELET ESTIMATE> ADEQUATE; ANISOCYTOSIS 1+; BASOS#(MANUAL) 0.08 x10^3/uL (0-0.1); BASOS% (MANUAL) 1 % (0-1); LARGE PLATELETS 1+; LYMPH#(MANUAL) 1.67 x10^3/uL (1-3.4); LYMPHS% (MANUAL) 22 % (22-44); MONOS#(MANUAL) 0.23 x10^3/uL (0.3-2.7); MONOS% (MANUAL) 3 % (2-9); SEG#(MANUAL) 5.62 x10^3/uL (1.8-6.8); SEGS% (MANUAL) 74 % (42-75)
[2018-03-10] MEDS ORDERED: OXYMETAZOLINE NASAL SPRAY 0.05%, 15ML NAS ONE
[2018-03-10 00:21] VITALS: BP 135/60
[2018-03-10] MEDS ORDERED: AMOXICILLIN 500 MG CAPSULE PO ONE (00:30)
== END 2018-03-10 00:23 | disposition home or self-care (01) ==
LOC: ED 23:00
DX: R04.0 Epistaxis (principal); E11.9 Type 2 diabetes mellitus without complications; I11.0 Hypertensive heart disease with heart failure; I50.9 Heart failure, unspecified; I25.2 Old myocardial infarction; E78.5 Hyperlipidemia, unspecified; I48.91 Unspecified atrial fibrillation
CPT/HCPCS: 30901; 30905; 36415; 85025; 85610; 85730; 99284

== ENCOUNTER 2018-03-22 18:34 | Observation (INO) | payer OTHER ==
[~2018-03-22] VITALS: Ht 167.6 cm; Wt 87.0 kg
[2018-03-22] MEDS ORDERED: SODIUM CHLORIDE FLUSH 10ML SYR IVF ONE (19:00)
[2018-03-22 19:08] LABS: BASOPHILS # (AUTO) 0.03 x10^3/uL (0-0.1); BASOPHILS % (AUTO) 1 % (0-1); EOSINOPHILS # (AUTO) 0.02 x10^3/uL (0-0.4); EOSINOPHILS % (AUTO) 0 % (1-7); LYMPHOCYTES # (AUTO) 1.14 x10^3/uL (1-3.4); LYMPHOCYTES % (AUTO) 25 % (22-44); MD NO; MEAN CORPUSCULAR HEMOGLOBIN 28.2 pg (27.5-34.5); MEAN CORPUSCULAR HGB CONC 33.9 g/dL (33.2-36.2); MEAN CORPUSCULAR VOLUME 83.1 fL (81-97); MEAN PLATELET VOLUME 10.2 fL (7.4-10.4); MONOCYTES # (AUTO) 0.77 x10^3/uL (0.2-0.8); MONOCYTES % (AUTO) 17 % (2-9); NEUTROPHILS # (AUTO) 2.71 x10^3/uL (1.8-6.8); NEUTROPHILS % (AUTO) 58 % (42-75); PLATELET COUNT 178 x10^3/uL (130-400); RED BLOOD COUNT 3.56 x10^6/uL (4.38-5.82); RED CELL DISTRIBUTION WIDTH 16.9 % (9.4-14.8)
[2018-03-22 19:17] LABS: INTERNATIONAL NORMALIZED RATIO 1.23 (0.93-1.1); PROTHROMBIN TIME 12.7 Seconds (9.6-11.5)
[2018-03-22 19:21] LABS: ALANINE AMINOTRANSFERASE 17 U/L (12-78); ANION GAP 9 mmol/L (5-15); CALCIUM 8.7 mg/dL (8.5-10.1); CHLORIDE 108 mmol/L (98-107)
[2018-03-22 19:26] LABS: ALKALINE PHOSPHATASE 47 U/L (45-117); BILIRUBIN,TOTAL 0.4 mg/dL (0.2-1.0); CREATININE 0.98 mg/dL (0.7-1.3); TOTAL PROTEIN 6.6 g/dL (6.4-8.2); TROPONIN I < 0.015 ng/mL (0.000-0.045)
[2018-03-22] MEDS ORDERED: POTASSIUM CHLORIDE 20 MEQ TAB.ER.PRT ONE (19:51)
[2018-03-22] MEDS ORDERED: POTASSIUM CHLORIDE 20 MEQ TAB.ER.PRT PO ONE (20:00)
[2018-03-22 20:09] LABS: T4 (THYROXINE) 9.9 mcg/dL (4.5-12.1)
[2018-03-22 20:50] VITALS: BP 131/78
[2018-03-22] MEDS: INSULIN LISPRO 100 UNITS/ML, PEN SQ-INSULIN SCH (21:00)
[2018-03-22] MEDS ORDERED: ENALAPRILAT 1.25 MG/ML, 2ML IVPush PRN (21:00)
[2018-03-22] MEDS ORDERED: ISOSORBIDE MONONITRATE ER 30 MG TABLET PO SCH (21:00)
[2018-03-22] MEDS ORDERED: hydrALAzine 20 MG/ML, 1ML IVPush PRN (21:00)
[2018-03-22] MEDS ORDERED: TAMSULOSIN 0.4 MG CAP.ER.24H PO SCH (21:00)
[2018-03-22] MEDS ORDERED: ERGOCALCIFEROL 50,000 UNIT CAPSULE PO SCH (21:00)
[2018-03-22] MEDS ORDERED: ACETAMINOPHEN 325 MG TABLET PO PRN (21:00)
[2018-03-22] MEDS ORDERED: ONDANSETRON 2MG/ML, 2ML IVPush PRN (21:00)
[2018-03-22] MEDS ORDERED: BISACODYL 10 MG SUPP PR PRN (21:00)
[2018-03-22] MEDS ORDERED: ONDANSETRON ODT 4 MG PO PRN (21:00)
[2018-03-22] MEDS ORDERED: ATORVASTATIN 80 MG TABLET PO SCH (21:00)
[2018-03-22] MEDS ORDERED: DOCUSATE 100 MG CAPSULE PO PRN (21:00)
[2018-03-22] MEDS ORDERED: ENALAPRILAT 1.25 MG/ML, 2ML IV PRN (21:30)
[2018-03-22 21:45] LABS: HEMOGLOBIN A1C 5.6 % (4.2-6.3)
[2018-03-22] MEDS: ALBUTEROL/IPRATROPIUM 2.5MG/0.5MG, 3 ML NPPB SCH (22:00)
[2018-03-22] MEDS ORDERED: NITROGLYCERIN 0.4 MG BOTTLE (25 TABS) SL PRN ×2 (22:00→23:30)
[2018-03-22 22:16] LABS: % IRON SATURATION 10 % (20-55); IRON LEVEL 37 mcg/dL (65-175); TOTAL IRON BINDING CAPACITY 363 mcg/dL (250-450)
[2018-03-22 22:18] LABS: TROPONIN I 0.043 ng/mL (0.000-0.045)
[2018-03-22] MEDS: AMIODARONE 200 MG TABLET PO SCH (22:56)
[2018-03-22] MEDS: ALLOPURINOL 100 MG TABLET PO SCH (22:56)
[2018-03-22] MEDS: APIXABAN 5 MG TABLET PO SCH (22:56)
[2018-03-22 22:58] VITALS: BP 146/73
[2018-03-22] MEDS ORDERED: ALBUTEROL SULFATE 2.5 MG/3 ML NPPB PRN (23:00)
[2018-03-22 23:24] VITALS: BP 145/79
[2018-03-22] MEDS ORDERED: NITROGLYCERIN 0.4 MG/SPRAY SL PRN (23:30)
[2018-03-23 01:14] VITALS: BP 127/72
[2018-03-23 05:30] LABS: CHLORIDE 111 mmol/L (98-107)
[2018-03-23 05:38] LABS: ALANINE AMINOTRANSFERASE 15 U/L (12-78); ALBUMIN 2.9 g/dL (3.4-5.0); ALKALINE PHOSPHATASE 40 U/L (45-117); ANION GAP 8 mmol/L (5-15); BILIRUBIN,TOTAL 0.5 mg/dL (0.2-1.0); CALCIUM 8.5 mg/dL (8.5-10.1); CHOL/HDL RATIO 7.5; CHOLESTEROL, TOTAL 82 mg/dL (140-239); CREATININE 0.87 mg/dL (0.7-1.3); HDL CHOL % 13 % (26-37); HDL CHOLESTEROL (DIRECT) 11 mg/dL (40-60); LDL CHOLESTEROL,CALCULATED 38 mg/dL (54-169); LDL/HDL RATIO 3.5 (0.5-3.0); TOTAL PROTEIN 6.2 g/dL (6.4-8.2); TRIGLYCERIDES 165 mg/dL (50-200); VLDL CHOLESTEROL 33 mg/dL (0-25)
[2018-03-23 05:44] LABS: MEAN CORPUSCULAR VOLUME 84.9 fL (81-97); MEAN PLATELET VOLUME 11.1 fL (7.4-10.4); PLATELET COUNT 172 x10^3/uL (130-400); RED BLOOD COUNT 3.53 x10^6/uL (4.38-5.82); RED CELL DISTRIBUTION WIDTH 17.1 % (9.4-14.8)
[2018-03-23 06:00] LABS: MD YES
[2018-03-23] MEDS ORDERED: CARVEDILOL 12.5 MG TABLET PO SCH (06:00)
[2018-03-23 06:05] LABS: ANISOCYTOSIS 1+; LYMPH#(MANUAL) 1.96 x10^3/uL (1-3.4); LYMPHS% (MANUAL) 37 % (22-44); MONOS#(MANUAL) 0.48 x10^3/uL (0.3-2.7); MONOS% (MANUAL) 9 % (2-9); SEG#(MANUAL) 2.86 x10^3/uL (1.8-6.8); SEGS% (MANUAL) 54 % (42-75)
[2018-03-23 06:06] LABS: <PLATELET ESTIMATE> ADEQUATE; LARGE PLATELETS 1+
[2018-03-23 06:32] VITALS: BP 121/68
[2018-03-23] MEDS: INSULIN LISPRO 100 UNITS/ML, PEN SQ-INSULIN SCH ×2 (07:00→11:00)
[2018-03-23] MEDS ORDERED: FUROSEMIDE 20 MG TABLET PO SCH (09:00)
[2018-03-23] MEDS ORDERED: AMLODIPINE 5 MG TABLET PO SCH (09:00)
[2018-03-23] MEDS ORDERED: CYANOCOBALOMIN 100MCG TABLET PO SCH (09:00)
[2018-03-23] MEDS ORDERED: CLOPIDOGREL 75 MG TABLET PO SCH (09:00)
[2018-03-23] MEDS ORDERED: ASPIRIN 81 MG TABLET EC PO SCH (09:00)
[2018-03-23] MEDS: ALBUTEROL/IPRATROPIUM 2.5MG/0.5MG, 3 ML NPPB SCH (09:00)
[2018-03-23] MEDS ORDERED: LOSARTAN 25MG TABLET PO SCH (09:00)
[2018-03-23] MEDS ORDERED: FENOFIBRATE 145 MG TABLET PO SCH (09:00)
[2018-03-23] MEDS ORDERED: SENNA/DOCUSATE TABLET PO SCH (09:00)
[2018-03-23] MEDS ORDERED: CITALOPRAM 20 MG TABLET PO SCH (09:00)
[2018-03-23] MEDS ORDERED: POLYETHYLENE GLYCOL 17 GM PACKET PO SCH (09:00)
[2018-03-23] MEDS: APIXABAN 5 MG TABLET PO SCH (09:03)
[2018-03-23] MEDS: ALLOPURINOL 100 MG TABLET PO SCH (09:04)
[2018-03-23] MEDS: AMIODARONE 200 MG TABLET PO SCH (09:05)
[2018-03-23] MEDS ORDERED: FERR-51 PO (09:29)
[2018-03-23] MEDS ORDERED: TIOT18CA INH (09:29)
[2018-03-23] MEDS ORDERED: FERROUS SULFATE 325 MG TABLET PO SCH (17:00)
== END 2018-03-23 12:10 | disposition home or self-care (01) ==
LOC: ED 20:33 → EDIP 21:07 → INTOOBSV 21:07 → 5SO 21:12 → DCLOUNGE 03-23 11:45
PROVIDERS: ADMIT Internal Medicine; ATTEND Internal Medicine
DX: R07.89 Other chest pain (principal); D50.9 Iron deficiency anemia, unspecified; E03.9 Hypothyroidism, unspecified; E11.51 Type 2 diabetes mellitus with diabetic peripheral angiopathy without gangrene; E11.65 Type 2 diabetes mellitus with hyperglycemia; E44.0 Moderate protein-calorie malnutrition; E78.5 Hyperlipidemia, unspecified; E87.6 Hypokalemia; I11.0 Hypertensive heart disease with heart failure; I50.32 Chronic diastolic (congestive) heart failure; I25.110 Atherosclerotic heart disease of native coronary artery with unstable angina pectoris; I25.2 Old myocardial infarction; I48.91 Unspecified atrial fibrillation; J44.9 Chronic obstructive pulmonary disease, unspecified; N40.0 Benign prostatic hyperplasia without lower urinary tract symptoms; Z79.82 Long term (current) use of aspirin; Z86.73 Personal history of transient ischemic attack (TIA), and cerebral infarction without residual deficits; Z85.46 Personal history of malignant neoplasm of prostate; Z87.891 Personal history of nicotine dependence; Z92.3 Personal history of irradiation; Z95.1 Presence of aortocoronary bypass graft; Z95.5 Presence of coronary angioplasty implant and graft
CPT/HCPCS: 36415; 71045; 80053; 80061; 82962; 83036; 83540; 83550; 83735; 83880; 84100; 84436; 84439; 84443; 84481; 84484; 85025; 85610; 93005; 99285; G0378

== ENCOUNTER 2018-06-18 06:22 | Observation (INO) | payer OTHER ==
[~2018-06-18] VITALS: Ht 167.6 cm; Wt 89.8 kg
[~2018-06-18 06:22] MED LIST changes: +ACET325T14 PO; -AMLO5TAB2 PO; +AMLO5TAB7 PO; +ASPI-621 PO; +CEFT1FRO2 IVPB; +CITA20TA9 PO; +FERR-51 PO; -GEMF600T3 PO; +GEMF600T4 PO; -IPRA3AMP INH; +IPRA3AMP30 INH; -LOSA100T6 PO; +LOSA100T7 PO; -LOSA50TA6 PO; +LOSA50TA7 PO; +METF850T10 PO; -METF850T2 PO; +TAMS-11 PO; +TIOT18CA INH
[2018-06-18] MEDS ORDERED: SODIUM CHLORIDE FLUSH 10ML SYR IVF ONE (07:00)
[2018-06-18 07:14] LABS: ALANINE AMINOTRANSFERASE 20 U/L (12-78); ALBUMIN 3.4 g/dL (3.4-5.0); ANION GAP 10 mmol/L (5-15); CALCIUM 8.2 mg/dL (8.5-10.1); CHLORIDE 112 mmol/L (98-107); CREATININE 0.82 mg/dL (0.7-1.3)
[2018-06-18 07:18] LABS: ALKALINE PHOSPHATASE 80 U/L (45-117); BILIRUBIN,TOTAL 0.4 mg/dL (0.2-1.0); TOTAL PROTEIN 7.2 g/dL (6.4-8.2); TROPONIN I 0.022 ng/mL (0.000-0.045)
[2018-06-18 07:36] LABS: MD YES; MEAN CORPUSCULAR HEMOGLOBIN 28.1 pg (27.5-34.5); MEAN CORPUSCULAR HGB CONC 33.5 g/dL (33.2-36.2); MEAN CORPUSCULAR VOLUME 84.1 fL (81-97); MEAN PLATELET VOLUME 10.7 fL (7.4-10.4); PLATELET COUNT 132 x10^3/uL (130-400); RED BLOOD COUNT 4.35 x10^6/uL (4.38-5.82); RED CELL DISTRIBUTION WIDTH 17.1 % (9.4-14.8)
[2018-06-18 07:38] LABS: LYMPH#(MANUAL) 1.68 x10^3/uL (1-3.4); LYMPHS% (MANUAL) 33 % (22-44); MONOS#(MANUAL) 0.51 x10^3/uL (0.3-2.7); MONOS% (MANUAL) 10 % (2-9); SEG#(MANUAL) 2.91 x10^3/uL (1.8-6.8); SEGS% (MANUAL) 57 % (42-75)
[2018-06-18 07:39] LABS: <PLATELET ESTIMATE> ADEQUATE; ANISOCYTOSIS 1+; LARGE PLATELETS 1+; POLYCHROMASIA 1+
[2018-06-18] MEDS ORDERED: FUROSEMIDE 40 MG/4 ML IV ONE (08:00)
[2018-06-18] MEDS ORDERED: SODIUM CHLORIDE FLUSH 10ML SYR IVF PRN (08:30)
[2018-06-18] MEDS ORDERED: FUROSEMIDE 40 MG/4 ML ONE (08:39)
[2018-06-18 09:05] VITALS: BP 122/50
[2018-06-18] MEDS ORDERED: HYDROcodone/APAP 5/325 TABLET PO PRN (11:00)
[2018-06-18] MEDS ORDERED: NITROGLYCERIN 0.4 MG BOTTLE (25 TABS) SL PRN (11:00)
[2018-06-18] MEDS ORDERED: LIDODERM 5% PATCH TD PRN (11:00)
[2018-06-18] MEDS ORDERED: ENALAPRILAT 1.25 MG/ML, 2ML IVPush PRN (11:00)
[2018-06-18] MEDS ORDERED: ONDANSETRON 2MG/ML, 2ML IVPush PRN (11:00)
[2018-06-18] MEDS ORDERED: ONDANSETRON ODT 4 MG PO PRN (11:00)
[2018-06-18] MEDS ORDERED: BISACODYL 10 MG SUPP PR PRN (11:00)
[2018-06-18] MEDS ORDERED: METHOCARBAMOL 500 MG TABLET PO PRN (11:00)
[2018-06-18] MEDS ORDERED: DOCUSATE 100 MG CAPSULE PO PRN (11:00)
[2018-06-18] MEDS ORDERED: hydrALAzine 20 MG/ML, 1ML IVPush PRN (11:00)
[2018-06-18] MEDS ORDERED: ACETAMINOPHEN 325 MG TABLET PO PRN (11:00)
[2018-06-18 12:31] LABS: TROPONIN I 0.039 ng/mL (0.000-0.045)
[2018-06-18] MEDS: ISOSORBIDE MONONITRATE ER 30 MG TABLET PO SCH (12:41)
[2018-06-18] MEDS: AMLODIPINE 5 MG TABLET PO SCH (12:41)
[2018-06-18] MEDS ORDERED: ALBUTEROL/IPRATROPIUM 2.5MG/0.5MG, 3 ML ONE ×2 (13:27→18:23)
[2018-06-18 14:48] VITALS: BP 103/61
[2018-06-18] MEDS ORDERED: ALBUTEROL/IPRATROPIUM 2.5MG/0.5MG, 3 ML NPPB SCH (15:00)
[2018-06-18] MEDS: CARVEDILOL 6.25 MG TABLET PO SCH (17:10)
[2018-06-18] MEDS: metFORMIN 850 MG TABLET PO SCH (17:10)
[2018-06-18] MEDS: ALBUTEROL/IPRATROPIUM 2.5MG/0.5MG, 3 ML NPPB SCH (18:28)
[2018-06-18 19:16] LABS: TROPONIN I 0.045 ng/mL (0.000-0.045)
[2018-06-18] MEDS ORDERED: TAMSULOSIN 0.4 MG CAP.ER.24H PO SCH (21:00)
[2018-06-18] MEDS ORDERED: ATORVASTATIN 80 MG TABLET PO SCH (21:00)
[2018-06-18 21:21] VITALS: BP 117/64
[2018-06-18] MEDS: ALLOPURINOL 100 MG TABLET PO SCH (21:23)
[2018-06-18] MEDS: DOCUSATE 100 MG CAPSULE PO SCH (21:23)
[2018-06-18] MEDS: AMIODARONE 200 MG TABLET PO SCH (21:23)
[2018-06-18] MEDS: APIXABAN 5 MG TABLET PO SCH (21:23)
[2018-06-19 02:04] VITALS: BP 104/64
[2018-06-19 05:28] LABS: MEAN CORPUSCULAR HEMOGLOBIN 28.4 pg (27.5-34.5); MEAN CORPUSCULAR HGB CONC 33.5 g/dL (33.2-36.2); MEAN CORPUSCULAR VOLUME 84.8 fL (81-97); MEAN PLATELET VOLUME 11.2 fL (7.4-10.4); PLATELET COUNT 135 x10^3/uL (130-400); RED BLOOD COUNT 4.23 x10^6/uL (4.38-5.82); RED CELL DISTRIBUTION WIDTH 16.3 % (9.4-14.8)
[2018-06-19 05:41] LABS: ANION GAP 10 mmol/L (5-15); CALCIUM 8.9 mg/dL (8.5-10.1); CHLORIDE 107 mmol/L (98-107)
[2018-06-19 05:45] LABS: CHOLESTEROL, TOTAL 132 mg/dL (140-239); CREATININE 0.91 mg/dL (0.7-1.3); HDL CHOL % 17 % (26-37); HDL CHOLESTEROL (DIRECT) 22 mg/dL (40-60); LDL CHOLESTEROL,CALCULATED 57 mg/dL (54-169); LDL/HDL RATIO 2.6 (0.5-3.0); TRIGLYCERIDES 265 mg/dL (50-200); VLDL CHOLESTEROL 53 mg/dL (0-25)
[2018-06-19 05:53] LABS: MD YES
[2018-06-19 05:55] LABS: EOS#(MANUAL) 0.09 x10^3/uL (0.0-0.4); EOS% (MANUAL) 2 % (1-7); LYMPH#(MANUAL) 1.41 x10^3/uL (1-3.4); LYMPHS% (MANUAL) 30 % (22-44); MONOS#(MANUAL) 0.52 x10^3/uL (0.3-2.7); MONOS% (MANUAL) 11 % (2-9); SEG#(MANUAL) 2.68 x10^3/uL (1.8-6.8); SEGS% (MANUAL) 57 % (42-75)
[2018-06-19 05:56] LABS: <PLATELET ESTIMATE> ADEQUATE; ANISOCYTOSIS 1+; LARGE PLATELETS 1+
[2018-06-19 06:39] VITALS: BP 111/65
[2018-06-19] MEDS: CARVEDILOL 6.25 MG TABLET PO SCH (06:40)
[2018-06-19 07:14] VITALS: BP 110/58
[2018-06-19] MEDS: ALLOPURINOL 100 MG TABLET PO SCH (08:58)
[2018-06-19] MEDS: AMLODIPINE 5 MG TABLET PO SCH (08:58)
[2018-06-19] MEDS: AMIODARONE 200 MG TABLET PO SCH (08:58)
[2018-06-19] MEDS: APIXABAN 5 MG TABLET PO SCH (08:58)
[2018-06-19] MEDS: ISOSORBIDE MONONITRATE ER 30 MG TABLET PO SCH (08:59)
[2018-06-19] MEDS: DOCUSATE 100 MG CAPSULE PO SCH (08:59)
[2018-06-19] MEDS ORDERED: TEMPLATE NON-FORMULARY MED. (Tiotropium Bromide** (Spiriva**) 18 MCG) INH SCH (09:00)
[2018-06-19] MEDS ORDERED: ASPIRIN 81 MG TABLET EC PO SCH (09:00)
[2018-06-19] MEDS ORDERED: FENOFIBRATE 145 MG TABLET PO SCH (09:00)
[2018-06-19] MEDS ORDERED: FUROSEMIDE 40 MG/4 ML IV SCH (09:00)
[2018-06-19] MEDS ORDERED: LOSARTAN 25MG TABLET PO SCH (09:00)
[2018-06-19] MEDS ORDERED: POLYETHYLENE GLYCOL 17 GM PACKET PO SCH (09:00)
[2018-06-19] MEDS ORDERED: CLOPIDOGREL 75 MG TABLET PO SCH (09:00)
[2018-06-19] MEDS ORDERED: CITALOPRAM 20 MG TABLET PO SCH (09:00)
[2018-06-19] MEDS: ALBUTEROL/IPRATROPIUM 2.5MG/0.5MG, 3 ML NPPB SCH (09:00)
[2018-06-19] MEDS: metFORMIN 850 MG TABLET PO SCH (09:09)
[2018-06-19] MEDS ORDERED: FURO-93 PO (09:38)
[2018-06-19] MEDS ORDERED: POTA10TA31 PO (09:38)
[2018-06-19 12:16] VITALS: BP 119/66
== END 2018-06-19 13:16 | disposition home health service (06) ==
LOC: ED 06:45 → 5SO 08:05 → INTOOBSV 08:05 → DCLOUNGE 06-19 13:08
PROVIDERS: ADMIT Hospitalist; ATTEND Family Medicine
DX: I50.43 Acute on chronic combined systolic (congestive) and diastolic (congestive) heart failure (principal); J44.1 Chronic obstructive pulmonary disease with (acute) exacerbation; I11.0 Hypertensive heart disease with heart failure; D64.9 Anemia, unspecified; E11.51 Type 2 diabetes mellitus with diabetic peripheral angiopathy without gangrene; E78.5 Hyperlipidemia, unspecified; F03.90 Unspecified dementia, unspecified severity, without behavioral disturbance, psychotic disturbance, mood disturbance, and anxiety; I25.10 Atherosclerotic heart disease of native coronary artery without angina pectoris; I25.2 Old myocardial infarction; I48.0 Paroxysmal atrial fibrillation; I48.2 Chronic atrial fibrillation; K59.00 Constipation, unspecified; Z79.02 Long term (current) use of antithrombotics/antiplatelets; Z79.82 Long term (current) use of aspirin; Z79.84 Long term (current) use of oral hypoglycemic drugs; Z86.73 Personal history of transient ischemic attack (TIA), and cerebral infarction without residual deficits; Z87.891 Personal history of nicotine dependence; Z92.3 Personal history of irradiation; Z95.1 Presence of aortocoronary bypass graft; Z95.5 Presence of coronary angioplasty implant and graft; Z85.46 Personal history of malignant neoplasm of prostate; Z23 Encounter for immunization
CPT/HCPCS: 36415; 71045; 80048; 80053; 80061; 83735; 83880; 84145; 84484; 85025; 90471; 90656; 93005; 93306; 94640; 96374; 96376; 97165; 99285; G0378; G8978; G8979; G8980; J1940; J7620

== ENCOUNTER 2018-06-27 20:54 | Inpatient (IN) | payer OTHER ==
[~2018-06-27] VITALS: Ht 167.6 cm; Wt 89.7 kg
[~2018-06-27 20:54] MED LIST changes: +POTA10TA31 PO
[2018-06-27] MEDS ORDERED: CLOP75TA52 PO (21:18)
[2018-06-27] MEDS ORDERED: ALBUTEROL SULFATE 2.5 MG/3 ML NPPB ONE (21:30)
[2018-06-27] MEDS ORDERED: ALBUTEROL/IPRATROPIUM 2.5MG/0.5MG, 3 ML ONE (21:30)
[2018-06-27 21:52] LABS: MEAN CORPUSCULAR HEMOGLOBIN 28.4 pg (27.5-34.5); MEAN CORPUSCULAR HGB CONC 33.2 g/dL (33.2-36.2); MEAN CORPUSCULAR VOLUME 85.4 fL (81-97); MEAN PLATELET VOLUME 10.6 fL (7.4-10.4); PLATELET COUNT 171 x10^3/uL (130-400); RED CELL DISTRIBUTION WIDTH 16.4 % (9.4-14.8)
[2018-06-27 21:54] LABS: ALANINE AMINOTRANSFERASE 18 U/L (12-78); ALBUMIN 3.4 g/dL (3.4-5.0); ANION GAP 8 mmol/L (5-15); CALCIUM 8.4 mg/dL (8.5-10.1); CHLORIDE 113 mmol/L (98-107)
[2018-06-27 21:57] LABS: ALKALINE PHOSPHATASE 73 U/L (45-117); BILIRUBIN,TOTAL 0.4 mg/dL (0.2-1.0); TOTAL PROTEIN 7.1 g/dL (6.4-8.2); TROPONIN I < 0.015 ng/mL (0.000-0.045)
[2018-06-27 22:20] LABS: MD YES
[2018-06-27 22:30] LABS: LYMPH#(MANUAL) 1.95 x10^3/uL (1-3.4); LYMPHS% (MANUAL) 33 % (22-44); MONOS#(MANUAL) 0.94 x10^3/uL (0.3-2.7); MONOS% (MANUAL) 16 % (2-9); SEG#(MANUAL) 3.01 x10^3/uL (1.8-6.8); SEGS% (MANUAL) 51 % (42-75)
[2018-06-27 22:31] LABS: ANISOCYTOSIS 1+
[2018-06-27 22:32] LABS: <PLATELET ESTIMATE> ADEQUATE; LARGE PLATELETS 1+
[2018-06-27] MEDS ORDERED: NITROGLYCERIN 0.4 MG BOTTLE (25 TABS) SL PRN (23:30)
[2018-06-27] MEDS ORDERED: hydrALAzine 20 MG/ML, 1ML IVPush PRN (23:30)
[2018-06-27] MEDS ORDERED: ACETAMINOPHEN 325 MG TABLET PO PRN (23:30)
[2018-06-27] MEDS ORDERED: FUROSEMIDE 40 MG/4 ML IV ONE (23:30)
[2018-06-27 23:34] VITALS: BP 124/71
[2018-06-27] MEDS: ATORVASTATIN 80 MG TABLET PO SCH (23:47)
[2018-06-27] MEDS: HEPARIN 5,000 UNITS/ML, 1ML SQ SCH (23:48)
[2018-06-27] MEDS: TAMSULOSIN 0.4 MG CAP.ER.24H PO SCH (23:48)
[2018-06-27] MEDS: ISOSORBIDE MONONITRATE ER 30 MG TABLET PO SCH (23:48)
[2018-06-28 01:00] VITALS: BP 121/64
[2018-06-28 02:03] LABS: RAPID INFLUENZA A Negative (Negative); RAPID INFLUENZA B Negative (Negative)
[2018-06-28 05:58] LABS: ANION GAP 9 mmol/L (5-15); CALCIUM 8.9 mg/dL (8.5-10.1); CHLORIDE 111 mmol/L (98-107)
[2018-06-28 07:26] VITALS: BP 119/66
[2018-06-28] MEDS: ALBUTEROL/IPRATROPIUM 2.5MG/0.5MG, 3 ML HHN SCH ×3 (08:00→21:00)
[2018-06-28] MEDS: IPRATROPIUM 0.5 MG/2.5 ML INHA HHN SCH ×4 (08:05→21:00)
[2018-06-28] MEDS: ASPIRIN 81 MG TABLET EC PO SCH (08:25)
[2018-06-28] MEDS: CLOPIDOGREL 75 MG TABLET PO SCH (08:25)
[2018-06-28] MEDS: HEPARIN 5,000 UNITS/ML, 1ML SQ SCH ×3 (08:25→23:16)
[2018-06-28] MEDS: FENOFIBRATE 145 MG TABLET PO SCH (08:25)
[2018-06-28] MEDS: CITALOPRAM 20 MG TABLET PO SCH (08:25)
[2018-06-28] MEDS: metFORMIN 850 MG TABLET PO SCH ×2 (08:25→18:20)
[2018-06-28] MEDS: AMIODARONE 200 MG TABLET PO SCH ×2 (08:25→21:51)
[2018-06-28] MEDS: LOSARTAN 25MG TABLET PO SCH (08:26)
[2018-06-28] MEDS: CARVEDILOL 6.25 MG TABLET PO SCH ×2 (08:26→18:20)
[2018-06-28] MEDS: AMLODIPINE 5 MG TABLET PO SCH (08:26)
[2018-06-28] MEDS: SODIUM CHLORIDE FLUSH 10ML SYR IVF SCH ×2 (09:00→21:51)
[2018-06-28] MEDS: ALLOPURINOL 100 MG TABLET PO SCH ×2 (09:00→21:51)
[2018-06-28] MEDS ORDERED: FUROSEMIDE 40 MG/4 ML IV ONE (11:00)
[2018-06-28] MEDS ORDERED: FUROSEMIDE 40 MG/4 ML ONE (11:02)
[2018-06-28 13:48] VITALS: BP 112/64
[2018-06-28 14:42] LABS: HEMOGLOBIN A1C 6.4 % (4.2-6.3)
[2018-06-28] MEDS: INSULIN LISPRO 100 UNITS/ML, PEN SQ-INSULIN SCH ×2 (16:00→21:00)
[2018-06-28] MEDS: GUAIFENESIN 200 MG TABLET PO SCH ×2 (16:26→21:51)
[2018-06-28] MEDS: FUROSEMIDE 40 MG/4 ML IV SCH (18:20)
[2018-06-28 19:30] VITALS: BP 125/65
[2018-06-28] MEDS: TAMSULOSIN 0.4 MG CAP.ER.24H PO SCH (21:51)
[2018-06-28] MEDS: ATORVASTATIN 80 MG TABLET PO SCH (21:51)
[2018-06-28] MEDS: ISOSORBIDE MONONITRATE ER 30 MG TABLET PO SCH (23:15)
[2018-06-28 23:50] VITALS: BP 131/61
[2018-06-29 01:36] VITALS: BP 131/58
[2018-06-29] MEDS: ALBUTEROL/IPRATROPIUM 2.5MG/0.5MG, 3 ML NPPB SCH ×4 (03:00→20:08)
[2018-06-29] MEDS ORDERED: ALBUTEROL SULFATE 2.5 MG/3 ML ONE ×2 (03:36→03:44)
[2018-06-29] MEDS ORDERED: FUROSEMIDE 20 MG/2 ML IV ONE (04:00)
[2018-06-29 04:55] VITALS: BP 96/64
[2018-06-29 05:23] LABS: ANION GAP 9 mmol/L (5-15); CHLORIDE 102 mmol/L (98-107); CREATININE 1.37 mg/dL (0.7-1.3)
[2018-06-29 05:25] LABS: MEAN CORPUSCULAR HEMOGLOBIN 28.5 pg (27.5-34.5); MEAN CORPUSCULAR HGB CONC 33.8 g/dL (33.2-36.2); MEAN CORPUSCULAR VOLUME 84.4 fL (81-97); MEAN PLATELET VOLUME 10.8 fL (7.4-10.4); PLATELET COUNT 164 x10^3/uL (130-400); RED BLOOD COUNT 4.44 x10^6/uL (4.38-5.82)
[2018-06-29 05:57] LABS: MD YES
[2018-06-29 06:00] LABS: LYMPH#(MANUAL) 1.47 x10^3/uL (1-3.4); LYMPHS% (MANUAL) 11 % (22-44); MONOS#(MANUAL) 2.01 x10^3/uL (0.3-2.7); MONOS% (MANUAL) 15 % (2-9); SEG#(MANUAL) 9.92 x10^3/uL (1.8-6.8); SEGS% (MANUAL) 74 % (42-75)
[2018-06-29 06:01] LABS: ANISOCYTOSIS 1+
[2018-06-29 06:02] LABS: <PLATELET ESTIMATE> ADEQUATE; LARGE PLATELETS 1+
[2018-06-29 06:16] VITALS: BP 118/62
[2018-06-29] MEDS: GUAIFENESIN 200 MG TABLET PO SCH ×2 (06:18→10:52)
[2018-06-29] MEDS: CARVEDILOL 6.25 MG TABLET PO SCH ×2 (06:18→17:12)
[2018-06-29] MEDS: INSULIN LISPRO 100 UNITS/ML, PEN SQ-INSULIN SCH ×4 (07:00→20:05)
[2018-06-29 08:08] VITALS: BP 100/60
[2018-06-29] MEDS: LOSARTAN 25MG TABLET PO SCH (08:22)
[2018-06-29] MEDS: FUROSEMIDE 40 MG/4 ML IV SCH ×2 (08:22→17:12)
[2018-06-29] MEDS: AMLODIPINE 5 MG TABLET PO SCH (08:22)
[2018-06-29] MEDS: HEPARIN 5,000 UNITS/ML, 1ML SQ SCH ×3 (08:22→23:28)
[2018-06-29] MEDS: CITALOPRAM 20 MG TABLET PO SCH (08:22)
[2018-06-29] MEDS: AMIODARONE 200 MG TABLET PO SCH ×2 (08:23→19:56)
[2018-06-29] MEDS: metFORMIN 850 MG TABLET PO SCH (08:23)
[2018-06-29] MEDS: ASPIRIN 81 MG TABLET EC PO SCH (08:23)
[2018-06-29] MEDS: FENOFIBRATE 145 MG TABLET PO SCH (08:23)
[2018-06-29] MEDS: ALLOPURINOL 100 MG TABLET PO SCH ×2 (08:23→19:56)
[2018-06-29] MEDS: CLOPIDOGREL 75 MG TABLET PO SCH (08:23)
[2018-06-29] MEDS: SODIUM CHLORIDE FLUSH 10ML SYR IVF SCH ×2 (09:00→19:56)
[2018-06-29] MEDS ORDERED: CALCIUM CARBONATE 500 MG TAB.CHEW ONE (10:46)
[2018-06-29] MEDS: CALCIUM CARBONATE 500 MG TAB.CHEW PO SCH (10:52)
[2018-06-29 13:08] VITALS: BP 99/60
[2018-06-29] MEDS ORDERED: PHARMACY MAY ADJ FOR RENAL FX MC PRN (13:30)
[2018-06-29] MEDS ORDERED: ZOLPIDEM 5MG TABLET PO PRN (14:00)
[2018-06-29 15:02] LABS: TROPONIN I < 0.015 ng/mL (0.000-0.045)
[2018-06-29 19:47] VITALS: BP 115/64
[2018-06-29] MEDS: TAMSULOSIN 0.4 MG CAP.ER.24H PO SCH (19:56)
[2018-06-29] MEDS: DOXYCYCLINE 100MG TABLET PO SCH (19:56)
[2018-06-29] MEDS: ATORVASTATIN 80 MG TABLET PO SCH (19:56)
[2018-06-29] MEDS: GUAIFENESIN ER 600 MG TABLET PO SCH (19:58)
[2018-06-29] MEDS: ISOSORBIDE MONONITRATE ER 30 MG TABLET PO SCH (23:27)
[2018-06-30 02:39] VITALS: BP 111/57
[2018-06-30] MEDS: ALBUTEROL/IPRATROPIUM 2.5MG/0.5MG, 3 ML NPPB SCH ×4 (03:00→19:57)
[2018-06-30 05:05] VITALS: BP 103/60
[2018-06-30] MEDS: CARVEDILOL 6.25 MG TABLET PO SCH ×2 (05:06→17:36)
[2018-06-30 07:36] VITALS: BP 108/60
[2018-06-30] MEDS: HEPARIN 5,000 UNITS/ML, 1ML SQ SCH ×3 (08:10→23:57)
[2018-06-30] MEDS: FUROSEMIDE 40 MG/4 ML IV SCH (08:10)
[2018-06-30] MEDS: GUAIFENESIN ER 600 MG TABLET PO SCH ×2 (08:11→20:57)
[2018-06-30] MEDS: DOXYCYCLINE 100MG TABLET PO SCH ×2 (08:11→20:57)
[2018-06-30] MEDS: ASPIRIN 81 MG TABLET EC PO SCH (08:11)
[2018-06-30] MEDS: CALCIUM CARBONATE 500 MG TAB.CHEW PO SCH (08:11)
[2018-06-30] MEDS: CITALOPRAM 20 MG TABLET PO SCH (08:11)
[2018-06-30] MEDS: ISOSORBIDE MONONITRATE ER 30 MG TABLET PO SCH (08:11)
[2018-06-30] MEDS: AMIODARONE 200 MG TABLET PO SCH ×2 (08:12→21:46)
[2018-06-30] MEDS: AMLODIPINE 5 MG TABLET PO SCH (08:12)
[2018-06-30] MEDS: CLOPIDOGREL 75 MG TABLET PO SCH (08:12)
[2018-06-30] MEDS: SODIUM CHLORIDE FLUSH 10ML SYR IVF SCH ×2 (08:12→20:56)
[2018-06-30] MEDS: FENOFIBRATE 145 MG TABLET PO SCH (08:12)
[2018-06-30] MEDS: INSULIN LISPRO 100 UNITS/ML, PEN SQ-INSULIN SCH ×4 (08:12→20:57)
[2018-06-30] MEDS: ALLOPURINOL 100 MG TABLET PO SCH ×2 (08:13→20:57)
[2018-06-30] MEDS ORDERED: FENTANYL PF 100 MCG/2ML ONE (14:17)
[2018-06-30] MEDS ORDERED: MIDAZOLAM 1 MG/ML, 2ML ONE (14:17)
[2018-06-30] MEDS ORDERED: LIDOCAINE-MPF 1%, 5ML ONE (14:17)
[2018-06-30 15:13] VITALS: BP 107/51
[2018-06-30] MEDS: FUROSEMIDE 40 MG TABLET PO SCH (15:55)
[2018-06-30 18:42] VITALS: BP 117/55
[2018-06-30] MEDS: ATORVASTATIN 80 MG TABLET PO SCH (20:57)
[2018-06-30] MEDS: TAMSULOSIN 0.4 MG CAP.ER.24H PO SCH (20:57)
[2018-06-30 20:59] VITALS: BP 107/42
[2018-07-01 02:19] VITALS: BP 104/43
[2018-07-01] MEDS: ALBUTEROL/IPRATROPIUM 2.5MG/0.5MG, 3 ML NPPB SCH ×4 (02:57→19:58)
[2018-07-01 05:22] LABS: ALBUMIN 3.3 g/dL (3.4-5.0); ANION GAP 9 mmol/L (5-15); CALCIUM 9.4 mg/dL (8.5-10.1); CHLORIDE 101 mmol/L (98-107)
[2018-07-01 05:24] VITALS: BP 124/58
[2018-07-01 05:25] LABS: ALANINE AMINOTRANSFERASE 16 U/L (12-78); ALKALINE PHOSPHATASE 61 U/L (45-117); BILIRUBIN,TOTAL 0.6 mg/dL (0.2-1.0); CREATININE 1.06 mg/dL (0.7-1.3); TOTAL PROTEIN 7.3 g/dL (6.4-8.2)
[2018-07-01 05:26] LABS: BASOPHILS % (AUTO) 0 % (0-1); EOSINOPHILS % (AUTO) 0 % (1-7); LYMPHOCYTES # (AUTO) 0.42 x10^3/uL (1-3.4); LYMPHOCYTES % (AUTO) 6 % (22-44); MD NO; MEAN CORPUSCULAR HEMOGLOBIN 27.6 pg (27.5-34.5); MEAN CORPUSCULAR HGB CONC 32.9 g/dL (33.2-36.2); MEAN CORPUSCULAR VOLUME 83.8 fL (81-97); MEAN PLATELET VOLUME 10.6 fL (7.4-10.4); MONOCYTES # (AUTO) 0.53 x10^3/uL (0.2-0.8); MONOCYTES % (AUTO) 8 % (2-9); NEUTROPHILS # (AUTO) 6.05 x10^3/uL (1.8-6.8); NEUTROPHILS % (AUTO) 86 % (42-75); PLATELET COUNT 154 x10^3/uL (130-400); RED BLOOD COUNT 4.22 x10^6/uL (4.38-5.82); RED CELL DISTRIBUTION WIDTH 15.6 % (9.4-14.8)
[2018-07-01 06:49] VITALS: BP 129/55
[2018-07-01] MEDS: SODIUM CHLORIDE FLUSH 10ML SYR IVF SCH ×2 (07:51→21:17)
[2018-07-01] MEDS: INSULIN LISPRO 100 UNITS/ML, PEN SQ-INSULIN SCH ×4 (07:51→21:15)
[2018-07-01] MEDS: AMIODARONE 200 MG TABLET PO SCH ×2 (07:52→21:18)
[2018-07-01] MEDS: FUROSEMIDE 40 MG TABLET PO SCH (07:52)
[2018-07-01] MEDS: CALCIUM CARBONATE 500 MG TAB.CHEW PO SCH (07:52)
[2018-07-01] MEDS: DOXYCYCLINE 100MG TABLET PO SCH ×2 (07:52→21:17)
[2018-07-01] MEDS: FENOFIBRATE 145 MG TABLET PO SCH (07:53)
[2018-07-01] MEDS: DOCUSATE 100 MG CAPSULE PO PRN ×2 (07:53→21:40)
[2018-07-01] MEDS: CITALOPRAM 20 MG TABLET PO SCH (07:53)
[2018-07-01] MEDS: ASPIRIN 81 MG TABLET EC PO SCH (07:53)
[2018-07-01] MEDS: HEPARIN 5,000 UNITS/ML, 1ML SQ SCH ×3 (07:53→23:14)
[2018-07-01] MEDS: ALLOPURINOL 100 MG TABLET PO SCH ×2 (07:53→21:17)
[2018-07-01] MEDS: GUAIFENESIN ER 600 MG TABLET PO SCH ×2 (07:53→21:15)
[2018-07-01] MEDS: ISOSORBIDE MONONITRATE ER 30 MG TABLET PO SCH (07:53)
[2018-07-01] MEDS: CLOPIDOGREL 75 MG TABLET PO SCH (07:53)
[2018-07-01] MEDS: CARVEDILOL 6.25 MG TABLET PO SCH ×2 (07:53→21:17)
[2018-07-01] MEDS: AMLODIPINE 5 MG TABLET PO SCH (07:53)
[2018-07-01] MEDS ORDERED: OMNIPAQUE 350 MG/ML, 100ML BOTTLE ONE (11:55)
[2018-07-01 13:54] VITALS: BP 122/58
[2018-07-01 19:02] VITALS: BP 138/64
[2018-07-01] MEDS: ATORVASTATIN 80 MG TABLET PO SCH (21:15)
[2018-07-01] MEDS: TAMSULOSIN 0.4 MG CAP.ER.24H PO SCH (21:17)
[2018-07-01 21:19] VITALS: BP 133/66
[2018-07-02 01:06] VITALS: BP 121/55
[2018-07-02] MEDS: ALBUTEROL/IPRATROPIUM 2.5MG/0.5MG, 3 ML NPPB SCH ×2 (02:42→07:48)
[2018-07-02 05:56] VITALS: BP 123/51
[2018-07-02] MEDS: CARVEDILOL 6.25 MG TABLET PO SCH (05:57)
[2018-07-02] MEDS: INSULIN LISPRO 100 UNITS/ML, PEN SQ-INSULIN SCH ×2 (07:00→11:00)
[2018-07-02 07:20] VITALS: BP 140/59
[2018-07-02] MEDS: CITALOPRAM 20 MG TABLET PO SCH (08:31)
[2018-07-02] MEDS: CALCIUM CARBONATE 500 MG TAB.CHEW PO SCH (08:31)
[2018-07-02] MEDS: DOXYCYCLINE 100MG TABLET PO SCH (08:31)
[2018-07-02] MEDS: ASPIRIN 81 MG TABLET EC PO SCH (08:31)
[2018-07-02] MEDS: CLOPIDOGREL 75 MG TABLET PO SCH (08:31)
[2018-07-02] MEDS: AMLODIPINE 5 MG TABLET PO SCH (08:32)
[2018-07-02] MEDS: ALLOPURINOL 100 MG TABLET PO SCH (08:32)
[2018-07-02] MEDS: AMIODARONE 200 MG TABLET PO SCH (08:32)
[2018-07-02] MEDS: SODIUM CHLORIDE FLUSH 10ML SYR IVF SCH (08:33)
[2018-07-02] MEDS: GUAIFENESIN ER 600 MG TABLET PO SCH (08:33)
[2018-07-02] MEDS: FENOFIBRATE 145 MG TABLET PO SCH (08:34)
[2018-07-02] MEDS: HEPARIN 5,000 UNITS/ML, 1ML SQ SCH (08:34)
[2018-07-02] MEDS ORDERED: FUROSEMIDE 40 MG TABLET PO SCH (09:00)
[2018-07-02] MEDS ORDERED: FURO40TA6 PO (11:23)
[2018-07-02] MEDS ORDERED: GUAI600T31 PO (11:23)
[2018-07-02] MEDS ORDERED: DOXY100T PO (11:23)
[2018-07-02] MEDS ORDERED: PRED20TA PO (11:23)
== END 2018-07-02 13:36 | disposition home health service (06) | DRG 286 ==
LOC: ED 21:40 → EDIP 22:26 → 5SO 23:22
PROVIDERS: ADMIT Hospitalist; ATTEND Hospitalist
PROC: 4A023N6 Measurement of Cardiac Sampling and Pressure, Right Heart, Percutaneous Approach (ICD-10-PCS; principal; 2018-06-27)
PROC: 4A033BC Measurement of Arterial Pressure, Coronary, Percutaneous Approach (ICD-10-PCS; 2018-06-27)
DX: I11.0 Hypertensive heart disease with heart failure (principal); N17.0 Acute kidney failure with tubular necrosis; J44.1 Chronic obstructive pulmonary disease with (acute) exacerbation; D68.59 Other primary thrombophilia; J44.0 Chronic obstructive pulmonary disease with (acute) lower respiratory infection; I50.43 Acute on chronic combined systolic (congestive) and diastolic (congestive) heart failure; D64.9 Anemia, unspecified; E11.51 Type 2 diabetes mellitus with diabetic peripheral angiopathy without gangrene; E78.5 Hyperlipidemia, unspecified; F03.90 Unspecified dementia, unspecified severity, without behavioral disturbance, psychotic disturbance, mood disturbance, and anxiety; I25.10 Atherosclerotic heart disease of native coronary artery without angina pectoris; I25.2 Old myocardial infarction; I48.0 Paroxysmal atrial fibrillation; J20.9 Acute bronchitis, unspecified; Z79.02 Long term (current) use of antithrombotics/antiplatelets; Z79.82 Long term (current) use of aspirin; Z85.46 Personal history of malignant neoplasm of prostate; Z86.73 Personal history of transient ischemic attack (TIA), and cerebral infarction without residual deficits; Z87.891 Personal history of nicotine dependence; Z92.3 Personal history of irradiation; Z95.1 Presence of aortocoronary bypass graft; Z95.5 Presence of coronary angioplasty implant and graft; M10.9 Gout, unspecified
CPT/HCPCS: 36415; 71045; 71275; 80048; 80053; 82962; 83036; 83735; 83880; 84484; 85025; 87400; 93005; 93451; 94640; 99156; 99285; C1894; G0378; J1644; J1940; J2250; J3010; J7613; J7620; J7644; Q9967; J1815; J7512